=== PATIENT | male | born 1970 | race Caucasian/White ===

== ENCOUNTER 2023-06-14 21:40 | Inpatient (IN) | payer OTHER ==
[~2023-06-14] VITALS: Ht 167.6 cm; Wt 83.7 kg
[~2023-06-14 21:40] MED LIST: APIX5TAB MT; CHOL2000 PO; DAPA5TAB PO; FERR-63 PO; GABA800T97 PO; PANT40TA51 MT; PRED10TA MT; TRAM50TA3 PO
[2023-06-14 22:50] LABS: BASOPHILS % 0.6 % (0.0-2.0); EOSINOPHILS % 0.4 % (0.0-5.0); HEMATOCRIT. 26.6 % (42.0-52.0); HEMOGLOBIN. 8.3 g/dL (14.0-18.0); LYMPHOCYTES % 9.8 % (20.0-50.0); MEAN CORPUSCULAR HEMOGLOBIN 27.2 pg (28.0-32.0); MEAN CORPUSCULAR HGB CONC 31.2 g/dL (31.0-37.0); MEAN CORPUSCULAR VOLUME 87.2 fL (80.0-94.0); MONOCYTES % 4.9 % (2.0-8.0); NEUTROPHILS % 84.3 % (40.0-76.0); PLATELET 206 x1000/uL (130-400); RED BLOOD CELL COUNT 3.05 mill/uL (4.7-6.1); RED CELL DISTRIBUTION WIDTH 18.7 % (11.6-14.6); WHITE BLOOD COUNT 6.2 x1000/uL (4.5-11.0)
[2023-06-14 22:52] LABS: PROTHROMBIN TIME 11.6 sec (9.6-11.0)
[2023-06-14 23:00] LABS: ALANINE AMINOTRANSFERASE 10 IU/L (10-49); ASPARTATE AMINOTRANSFERASE 10 IU/L (<34); BILIRUBIN TOTAL 0.7 mg/dL (0.1-1.0); CALCIUM 8.5 mg/dL (8.7-10.4); CARBON DIOXIDE 21 mEq/L (21-32); CHLORIDE 108 mEq/L (98-107); CREATININE 1.7 mg/dL (0.6-1.3); GLUCOSE 167 mg/dL (70-105); POTASSIUM 4.4 mEq/L (3.5-5.1); SODIUM 137 mEq/L (136-145); TROPONIN I HIGH SENSITIVITY 6 ng/L (3.0-53); UREA NITROGEN BLOOD 29 mg/dL (9-23)
[2023-06-15 02:45] VITALS: BP 105/58; PULSE 66; RESP 16; TEMP 98.9
[2023-06-15] MEDS ORDERED: ZOLP5TAB2 MT (04:11)
[2023-06-15] MEDS: TRAMADOL 50MG TABLET PO PRN (05:15)
[2023-06-15] MEDS ORDERED: TRAMADOL 50MG TABLET PO PRN (06:30)
[2023-06-15 08:00] VITALS: BP 114/64; PULSE 64; RESP 18; TEMP 97.3
[2023-06-15] MEDS ORDERED: DOCUSATE SODIUM 100MG CAPSULE PO PRN (08:30)
[2023-06-15] MEDS ORDERED: CLONIDINE 0.1MG TABLET PO PRN (08:30)
[2023-06-15] MEDS ORDERED: IPRATROPIUM/ALBUTEROL 0.5-3(2.5)MG/3ML NEB HHN PRN (08:30)
[2023-06-15] MEDS ORDERED: ONDANSETRON HCL 4MG/2ML INJ IV PRN (08:30)
[2023-06-15] MEDS ORDERED: ACETAMINOPHEN 325MG TABLET PO PRN ×2 (08:30)
[2023-06-15] MEDS ORDERED: MEDICATION NOT ON FORMULARY EA (Cholecalciferol (Vitamin D3) (Vitamin D3) 1 CAP) PO SCH (09:00)
[2023-06-15] MEDS ORDERED: MEDICATION NOT ON FORMULARY EA (Gabapentin 1 TAB) PO SCH (09:00)
[2023-06-15] MEDS ORDERED: MEDICATION NOT ON FORMULARY EA (Dapagliflozin Propanediol (Farxiga) 1 TAB) PO SCH (09:00)
[2023-06-15] MEDS: APIXABAN 5 MG TABLET PO SCH (09:03)
[2023-06-15] MEDS: GABAPENTIN 400MG CAPSULE PO SCH (09:03)
[2023-06-15] MEDS: PANTOPRAZOLE 40MG DR TABLET PO SCH (09:03)
[2023-06-15] MEDS: PREDNISONE 10MG TABLET PO SCH (09:03)
[2023-06-15] MEDS: FERROUS SULFATE 325MG TABLET PO SCH (09:03)
[2023-06-15] MEDS: CHOLECALCIFEROL (D3) 1000 UNIT TABLET PO SCH (09:03)
[2023-06-15 09:11] LABS: BASOPHILS % 0.5 % (0.0-2.0); EOSINOPHILS % 1.5 % (0.0-5.0); HEMATOCRIT. 25.6 % (42.0-52.0); HEMOGLOBIN. 8.2 g/dL (14.0-18.0); LYMPHOCYTES % 14.3 % (20.0-50.0); MEAN CORPUSCULAR HEMOGLOBIN 28.2 pg (28.0-32.0); MEAN CORPUSCULAR VOLUME 88.1 fL (80.0-94.0); MEAN PLATELET VOLUME 8.9 fl (7.4-10.4); MONOCYTES % 4.2 % (2.0-8.0); NEUTROPHILS % 79.5 % (40.0-76.0); PLATELET 186 x1000/uL (130-400); RED CELL DISTRIBUTION WIDTH 18.4 % (11.6-14.6); WHITE BLOOD COUNT 6.1 x1000/uL (4.5-11.0)
[2023-06-15 09:20] LABS: CALCIUM 8.9 mg/dL (8.7-10.4); CREATININE 1.7 mg/dL (0.6-1.3); POTASSIUM 4.4 mEq/L (3.5-5.1)
[2023-06-15] MEDS: CEFTRIAXONE 1GM/50ML 50 ML IV SCH (10:15)
[2023-06-15] MEDS: AZITHROMYCIN 500MG/250ML 250 ML IV SCH (10:15)
[2023-06-15 10:55] LABS: IRON 54 ug/dL (65-175); TOTAL IRON BINDING CAPACITY 289 ug/dl (250-425)
[2023-06-15] MEDS ORDERED: NALOXONE HCL 0.4MG/ML VIAL IV PRN (11:15)
[2023-06-15 12:00] VITALS: BP 110/65; PULSE 65; RESP 18; TEMP 97
[2023-06-15 12:03] LABS: FERRITIN 582 ng/mL (22-322); FOLIC ACID (FOLATE) SERUM 9.51 ng/mL (>5.38); VITAMIN B12 SERUM 268 pg/mL (211-911)
[2023-06-15 12:28] LABS: BG BASE EXCESS -5.7 mmol/L (-2.0-2.0); BG CARBOXYHEMOGLOBIN 0.5 % (0.5-1.5); BG DEOXYHEMOGLOBIN 4.2 % (0.0-5.0); BG FRACTION INSPIRED OXYGEN 21; BG HCO3 ACT 18.3 mmol/L (22.0-26.0); BG METHEMOGLOBIN 0.4 % (0.0-1.5); BG OXYGEN SATURATION 95.8 % (92.0-98.5); BG OXYHEMOGLOBIN 94.9 % (94.0-97.0); BG PCO2 30.1 mmHg (35.0-45.0); BG PH 7.401 (7.350-7.450); BG PO2 86.7 mmHg (75.0-100.0); BG SAMPLE SITE LEFT RADIAL; BG TOTAL HEMOGLOBIN 8.6 g/dL (12.0-18.0); BG VENT MODE ROOM AIR
[2023-06-15 16:00] VITALS: BP 112/79; PULSE 60; RESP 18; TEMP 97.6
[2023-06-15 16:43] LABS: CREATINE KINASE MB FRACTION 0.6 ng/mL (0.5-3.6)
[2023-06-15 17:21] LABS: CLARITY URINE CLEAR (CLEAR); COLOR URINE YELLOW (YELLOW); GLUCOSE URINE NEGATIVE (NEGATIVE); KETONES URINE NEGATIVE (NEGATIVE); LEUKOCYTE ESTERASE URINE NEGATIVE (NEGATIVE); NITRITE URINE NEGATIVE (NEGATIVE); OCCULT BLOOD URINE NEGATIVE (NEGATIVE); PH URINE 5.5 (4.5-8.0); PROTEIN URINE NEGATIVE (NEGATIVE); SPECIFIC GRAVITY URINE 1.011 (1.005-1.030); UROBILINOGEN URINE 0.2 E.U./dL (0.2-1.0)
[2023-06-15] MEDS: FUROSEMIDE 20MG/2ML VIAL IVP SCH (17:29)
[2023-06-15 17:35] LABS: *AMPHETAMINES SCREEN URINE NEGATIVE (NEGATIVE); *BARBITURATES SCREEN URINE NEGATIVE (NEGATIVE); *BENZODIAZEPINES SCREEN URINE NEGATIVE (NEGATIVE); *COCAINE SCREEN URINE NEGATIVE (NEGATIVE); CANNABINOID URINE SCREEN NEGATIVE (NEGATIVE); ECSTASY MDMA SCREEN URINE NEGATIVE (NEGATIVE); METHADONE URINE SCREEN Neg (NEGATIVE); OPIATES URINE SCREEN NEGATIVE (NEGATIVE); PHENCYCLIDINE URINE SCREEN NEGATIVE (NEGATIVE)
[2023-06-15 20:00] VITALS: BP 124/59; PULSE 63; RESP 18; TEMP 97.9
[2023-06-15] MEDS: ZOLPIDEM TARTRATE 5MG TABLET PO PRN (21:41)
[2023-06-16] VITALS: BP 95/36; PULSE 61; RESP 18; TEMP 97.9
[2023-06-16 00:28] LABS: CREATINE KINASE MB FRACTION 0.8 ng/mL (0.5-3.6)
[2023-06-16 04:00] VITALS: BP 117/67; PULSE 68; RESP 18; TEMP 97.9
[2023-06-16 06:48] LABS: BASOPHILS % 0.7 % (0.0-2.0); EOSINOPHILS % 1.5 % (0.0-5.0); HEMATOCRIT. 25.4 % (42.0-52.0); HEMOGLOBIN. 8.2 g/dL (14.0-18.0); LYMPHOCYTES % 13.2 % (20.0-50.0); MEAN CORPUSCULAR HGB CONC 32.3 g/dL (31.0-37.0); MEAN CORPUSCULAR VOLUME 86.5 fL (80.0-94.0); MEAN PLATELET VOLUME 9.3 fl (7.4-10.4); MONOCYTES % 4.8 % (2.0-8.0); NEUTROPHILS % 79.8 % (40.0-76.0); PLATELET 163 x1000/uL (130-400); RED BLOOD CELL COUNT 2.94 mill/uL (4.7-6.1); RED CELL DISTRIBUTION WIDTH 18.1 % (11.6-14.6); WHITE BLOOD COUNT 6.2 x1000/uL (4.5-11.0)
[2023-06-16 07:16] LABS: CALCIUM 9.1 mg/dL (8.7-10.4); CREATININE 1.6 mg/dL (0.6-1.3); POTASSIUM 4.4 mEq/L (3.5-5.1)
[2023-06-16 07:59] VITALS: BP 111/56; PULSE 68; RESP 20; TEMP 98
[2023-06-16] MEDS: PANTOPRAZOLE 40MG DR TABLET PO SCH (08:42)
[2023-06-16 12:23] VITALS: BP 111/58; PULSE 65; RESP 20; TEMP 98.2
[2023-06-16 15:35] VITALS: BP 98/53; PULSE 61; RESP 18; TEMP 98.2
[2023-06-16 20:00] VITALS: BP 107/55; PULSE 56; RESP 18; TEMP 97.5
[2023-06-17] VITALS: BP 101/49; PULSE 60; RESP 18; TEMP 97.8
[2023-06-17 04:00] VITALS: BP 100/47; PULSE 63; RESP 19; TEMP 97.6
[2023-06-17 07:07] LABS: BASOPHILS % 0.7 % (0.0-2.0); EOSINOPHILS % 1.8 % (0.0-5.0); HEMATOCRIT. 24.5 % (42.0-52.0); HEMOGLOBIN. 8.2 g/dL (14.0-18.0); LYMPHOCYTES % 22.5 % (20.0-50.0); MEAN CORPUSCULAR HEMOGLOBIN 28.3 pg (28.0-32.0); MEAN CORPUSCULAR HGB CONC 33.3 g/dL (31.0-37.0); MEAN CORPUSCULAR VOLUME 84.8 fL (80.0-94.0); MEAN PLATELET VOLUME 9.3 fl (7.4-10.4); MONOCYTES % 8.6 % (2.0-8.0); NEUTROPHILS % 66.4 % (40.0-76.0); PLATELET 142 x1000/uL (130-400); RED BLOOD CELL COUNT 2.89 mill/uL (4.7-6.1); RED CELL DISTRIBUTION WIDTH 17.8 % (11.6-14.6); WHITE BLOOD COUNT 4.2 x1000/uL (4.5-11.0)
[2023-06-17 07:13] LABS: CALCIUM 9.1 mg/dL (8.7-10.4); CREATININE 1.9 mg/dL (0.6-1.3); POTASSIUM 4.6 mEq/L (3.5-5.1)
[2023-06-17 08:00] VITALS: BP_SYST 118; BP_SYST 121; BP_DIAS 53; BP_DIAS 59; PULSE 55; PULSE 61; RESP 17; RESP 18; TEMP 96.1; TEMP 97
[2023-06-17] MEDS: AZITHROMYCIN 500 MG TABLET PO SCH (08:04)
[2023-06-17 12:00] VITALS: BP 124/74; PULSE 68; RESP 17; TEMP 96.3
[2023-06-17] MEDS: EMPAGLIFLOZIN 10MG TABLET PO SCH (14:07)
[2023-06-17 16:00] VITALS: BP 140/78; PULSE 70; RESP 16; TEMP 97
[2023-06-17] MEDS: LACTULOSE 20G/30ML UDC PO NR (16:22)
[2023-06-17] MEDS: FUROSEMIDE 20MG/2ML VIAL IVP SCH (16:23)
[2023-06-17 20:00] VITALS: BP 101/52; PULSE 63; RESP 20; TEMP 96.1
[2023-06-18] VITALS: BP 101/59; PULSE 63; RESP 20; TEMP 98.7
[2023-06-18 04:00] VITALS: BP 100/54; PULSE 56; RESP 18; TEMP 97.8
[2023-06-18 05:51] LABS: INR 1.1; PROTHROMBIN TIME 11.8 sec (9.6-11.0)
[2023-06-18 05:58] LABS: BASOPHILS % 0.7 % (0.0-2.0); EOSINOPHILS % 1.4 % (0.0-5.0); HEMATOCRIT. 26.1 % (42.0-52.0); HEMOGLOBIN. 8.7 g/dL (14.0-18.0); LYMPHOCYTES % 20.4 % (20.0-50.0); MEAN CORPUSCULAR HEMOGLOBIN 28.6 pg (28.0-32.0); MEAN CORPUSCULAR HGB CONC 33.2 g/dL (31.0-37.0); MEAN CORPUSCULAR VOLUME 86.1 fL (80.0-94.0); MEAN PLATELET VOLUME 9.2 fl (7.4-10.4); MONOCYTES % 9.2 % (2.0-8.0); NEUTROPHILS % 68.3 % (40.0-76.0); PLATELET 144 x1000/uL (130-400); RED BLOOD CELL COUNT 3.04 mill/uL (4.7-6.1); RED CELL DISTRIBUTION WIDTH 18.3 % (11.6-14.6); WHITE BLOOD COUNT 5.2 x1000/uL (4.5-11.0)
[2023-06-18 06:06] LABS: CALCIUM 8.8 mg/dL (8.7-10.4); CREATININE 2.3 mg/dL (0.6-1.3); POTASSIUM 4.3 mEq/L (3.5-5.1)
[2023-06-18 08:00] VITALS: BP 117/54; PULSE 54; RESP 22; TEMP 98.4
[2023-06-18 12:00] VITALS: BP 122/55; PULSE 63; RESP 20; TEMP 98.2
[2023-06-18] MEDS ORDERED: APIX5TAB MT (12:24)
[2023-06-18 16:00] VITALS: BP 130/72; PULSE 67; RESP 20; TEMP 98.2
[2023-06-18] MEDS ORDERED: FURO20TA4 MT (16:31)
[2023-06-18 17:29] VITALS: BP 132/72; PULSE 78; TEMP 98; O2SAT 98
== END 2023-06-18 18:00 | disposition home or self-care (01) | DRG 197 ==
LOC: ER 21:40 → 7WST 06-15 02:31
PROVIDERS: ADMIT Internal Medicine; ATTEND Internal Medicine
DX: I82.433 Acute embolism and thrombosis of popliteal vein, bilateral (principal); I50.33 Acute on chronic diastolic (congestive) heart failure; I31.39 Other pericardial effusion (noninflammatory); N17.9 Acute kidney failure, unspecified; J18.9 Pneumonia, unspecified organism; I13.0 Hypertensive heart and chronic kidney disease with heart failure and stage 1 through stage 4 chronic kidney disease, or unspecified chronic kidney disease; K92.2 Gastrointestinal hemorrhage, unspecified; D64.9 Anemia, unspecified; D72.819 Decreased white blood cell count, unspecified; N18.9 Chronic kidney disease, unspecified; N10 Acute pyelonephritis; R59.1 Generalized enlarged lymph nodes; I08.3 Combined rheumatic disorders of mitral, aortic and tricuspid valves; R59.0 Localized enlarged lymph nodes; Z86.711 Personal history of pulmonary embolism; Z86.718 Personal history of other venous thrombosis and embolism; Z95.828 Presence of other vascular implants and grafts
CPT/HCPCS: 36415; 36600; 71045; 78582; 80048; 80053; 80305; 81003; 82270; 82375; 82550; 82553; 82607; 82728; 82746; 82805; 83036; 83540; 83550; 83880; 84145; 84484; 85025; 85044; 86850; 86900; 99291; A9558; J0456; J0696; J1940; J7512

== ENCOUNTER 2024-02-16 15:51 | Emergency (ER) | payer MEDICAID, OTHER ==
[~2024-02-16] VITALS: Ht 167.6 cm; Wt 88.0 kg
[~2024-02-16 15:51] MED LIST changes: -APIX5TAB MT; +APIX5TAB PO; +ATOR20TA65 PO; +B50 GT; -DAPA5TAB PO; -FERR-63 PO; +FOLI-43 PO; -GABA800T97 PO; +HYDR-4005 MT; +LINE600T11 MT; -PANT40TA51 MT; -PRED10TA MT; -TRAM50TA3 PO
[2024-02-16 15:57] VITALS: O2SAT 99
[2024-02-16 15:58] VITALS: BP 139/74; PULSE 79; RESP 18; TEMP 98.2; O2SAT 99
[2024-02-16] MEDS ORDERED: HYDR-4005 MT ×2 (16:23→16:26)
== END 2024-02-16 16:43 | disposition home or self-care (01) ==
LOC: ER 15:51
DX: Z76.0 Encounter for issue of repeat prescription (principal); Z98.890 Other specified postprocedural states
CPT/HCPCS: 99283

== ENCOUNTER 2024-03-20 11:06 | Emergency (ER) | payer OTHER ==
[~2024-03-20] VITALS: Ht 167.6 cm; Wt 81.6 kg
[2024-03-20 11:13] VITALS: O2SAT 100
[2024-03-20 11:16] VITALS: BP 136/74; PULSE 70; RESP 18; TEMP 98.2; O2SAT 98
== END 2024-03-20 15:15 | disposition home or self-care (01) ==
LOC: ER 12:51
DX: H11.31 Conjunctival hemorrhage, right eye (principal); D64.9 Anemia, unspecified; Z86.718 Personal history of other venous thrombosis and embolism; Z98.890 Other specified postprocedural states
CPT/HCPCS: 99281